=== PATIENT | female | born 1965 | race Caucasian/White ===

== ENCOUNTER 2022-01-13 06:20 | Day surgery (SDC) | payer OTHER ==
[~2022-01-13] VITALS: Ht 154.9 cm; Wt 51.7 kg
[~2022-01-13 06:20] MED LIST: AMBIEN5 MG PO; ATIVAN1 M1 PO; BACLOFEN10 MG PO; GABAPENTIN600 MG PO; GLUMETZA500 MG PO; JANUVIA100 MG PO; LIDODERM1 EACH TOP; LIPITOR20 MG PO; PEPCID AC20 MG PO; SYNTHROID75 MCG PO; ULTRAM50 MG PO; ZESTRIL5 MG PO
== END 2022-01-13 15:35 | disposition home or self-care (01) ==
LOC: CIR.AMB 06:20
PROVIDERS: ATTEND Colon & Rectal Surgery
DX: K64.8 Other hemorrhoids (principal); J45.909 Unspecified asthma, uncomplicated; Z71.6 Tobacco abuse counseling; F17.210 Nicotine dependence, cigarettes, uncomplicated; E03.9 Hypothyroidism, unspecified; E11.9 Type 2 diabetes mellitus without complications; Z85.3 Personal history of malignant neoplasm of breast; Z79.84 Long term (current) use of oral hypoglycemic drugs

== ENCOUNTER 2023-04-05 07:18 | Outpatient (CLI) | payer OTHER | END 2023-04-05 07:24 | disposition home or self-care (01) | LOC: RX STUDY 07:18 | PROVIDERS: ATTEND Internal Medicine Gastroenterology | DX: K30 Functional dyspepsia (principal); R13.10 Dysphagia, unspecified ==